=== PATIENT | male | born 1980 | race Hispanic/Latino ===

== ENCOUNTER 2022-07-05 18:11 | Emergency (ER) | payer OTHER ==
--- OUTSIDE RECORDS SUMMARY | 2022-07-05 18:20 | XMS REPORT | Continuity of Care Document ---
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 Problems Condition Condition Condition Status Onset Resolution Last Treating Co mments Source Name Details Category Date Date Treatment Clinician Date Seasonal Seasonal Disease Active Kelse y allergic allergic 06-13 Seybol d rhinitis rhinitis 00:00: - due to due to 00 Externa pollen pollen l Chronic Chronic Disease Active Autumn cough cough 06-13 Seybold 00:00: - 00 Externa l Acute Acute Disease Active Autumn non-recurr non-recurr 06-13 Se mercy ent ent 00:00: - maxillary maxillary 00 Exte rna sinusitis sinusitis l Non-recurr Non-recurr Disease Active Lucia elsey ent acute ent acute 06-13 Seyb old suppurativ suppurativ 00:00: - e otitis e otitis 00 Application Lead a media of media of l left ear left ear without without spontaneou spontaneou s rupture s rupture of of tympanic tympanic membrane membrane Allergies, Adverse Reactions, Alerts This patient has no known allergies or adverse reactions. Social History Social Habit Start Date Stop Date Quantity Comments Source Gender identity Autumn madrid - External Sexual orientation Autumn Beltre - External History of Social 2022-06-13 2022-06-13 Autumn Beltre - function 00:00:00 00:00:00 External Sex [birth year] At [birth year] Chris Beltre - 00:00:00 00:00:00 External Smoking Status Start Date Stop Date Source Never smoked tobacco Autumn Nciho guprreet - External Medications Ordered Filled Start Stop Current Ordering Indication Dosage Frequency Signature Comments Components Source Medication Medication Date Date Medication? Clinician (SIG) Name Name FLUTICASONE Yes 50ug Use 1 Kelse y PROPIONATE, 4-07 spray (50 Sey bold NASAL, 50 11:02: mcg total) - MCG/ACT 55 in each Externa nasal nostril l Suspension daily Ezetimibe 2022- No 10mg Take 1 Kelse y 10 MG oral -09 09-07 tablet (10 Se ybold Tablet 10:50: 00:00 mg total) - 41 :00 by mouth Externa daily l Simvastatin 2022- No 20mg Take 1 Chris sey 20 MG oral -09 09-07 tablet (20 Se ybold Tablet 10:50: 00:00 mg total) - 38 :00 by mouth Externa every day l at bedtime Loratadine Yes 10mg Take 1 Kelse y (Claritin) 4-07 capsule Seybol d 10 MG oral 10:41: (10 mg - Capsule 41 total) by Externa mouth l daily Loratadine 0 Yes 10mg Take 1 Kelse y (Claritin) 4-07 capsule Seybol d 10 MG oral 10:41: (10 mg - Capsule 41 total) by Externa mouth l daily Amoxicillin Yes [id number] 1{tbl} Take 1 Autumn -Pot 4-07 tablet by Seybold Clavulanate 00:00: mouth 2 - 875-125 MG 00 times Externa oral Tablet daily l predniSONE 0 Yes [id number] 10mg Take 1 K elsey (DELTASONE) 4-07 tablet (10 Se ybold 10 MG oral 00:00: mg total) - tablet 00 by mouth Externa daily l Amoxicillin 2022-0 2023- No [id number] 1{tbl} Take 1 Autumn -Pot 4-07 04-29 tablet by Seybold Clavulanate 00:00: 00:00 mouth 2 - 875-125 MG 00 :00 times Externa oral Tablet daily l predniSONE 2022- No [id number] 10mg Take 1 Autumn (DELTASONE) 06-13 tablet (10 S eybold 10 MG oral 00:00: 00:00 mg total) - tablet 00 :00 by mouth Externa daily l Vital Signs Vital Name Observation Time Observation Value Comments Source Systolic blood 2022-06-13 15:34:00 108 mm[Hg] Autumn Seybold - pressure External Diastolic blood 2022-06-13 15:34:00 80 mm[Hg] Supa y Seybold - pressure External Heart rate 2022-06-13 15:34:00 100 /min Autumn fieldbold - External Body temperature 2022-06-13 15:34:00 35.67 Malka Gabriella field Seybold - External Respiratory rate 2022-06-13 15:34:00 15 /min Gabriella field Seybold - External Body height 2022-06-13 15:34:00 170.2 cm Autumn fieldbold - External Body weight 2022-06-13 15:34:00 82.555 kg Autumn fieldbold - External BMI 2022-06-13 15:34:00 28.51 kg/m2 Autumn fieldbold - External Procedures This patient has no known procedures. Encounters Start End Encounter Admission Attending Care Care Encounter Source Date/Time Date/Time Type Type Clinicians Facility Department ID 2022-07-28 2022-07-28 Outpatient AUTUMN MASON [id number] Autumn 10:30:00 10:30:00 GULSHANMELISSA Cortez ybold A 2022-07-05 2022-07-05 Outpatient AUTUMN LÓPEZ [id number] Autumn 13:30:00 13:30:00 SANDRA Seybol d 2022-07-05 2022-07-05 Outpatient AUTUMN LÓPEZ [id number] Autumn 00:00:00 00:00:00 SANDRA Seybol d 2022-07-04 2022-07-04 Outpatient AUTUMN CAMPO [id number] Autumn 11:30:00 11:30:00 YUNI Seybol d 2022-06-23 2022-06-23 Outpatient AUTUMN CAMPO [id number] Autumn 00:00:00 00:00:00 YUNI Seybol d 2022-06-23 2022-06-23 Outpatient AUTUMN CAMPO [id number] Autumn 00:00:00 00:00:00 YUNI Seybol d 2022-06-16 2022-06-16 Outpatient AUTUMN CAMPO [id number] Autumn 00:00:00 00:00:00 YUNI Seybol d 2022-06-14 2022-06-14 Outpatient AUTUMN LEYVA [id number] Autumn 09:35:00 09:35:00 Seybol d 2022-06-13 2022-06-13 Outpatient AUTUMN CAMPO [id number] Autumn 10:45:00 10:45:00 YUNI Seybol d Results This patient has no known results.
[2022-07-05] MEDS ORDERED: IBUPROFEN 200 MG TAB PO ONE (18:56)
[2022-07-05] MEDS ORDERED: BUPIVACAINE 0.5% PF 10 ML VIAL ONE (18:56)
[2022-07-05] MEDS ORDERED: LIDOCAINE 1% 20 ML MDV ONE (18:56)
--- NOTE | 2022-07-05 20:37 | RAD REPORT ---
EXAM DESCRIPTION: NIESHA RAMIREZ - 07/05/2022 8:11 pm CLINICAL HISTORY: SMASH INJURY COMPARISON: No comparisons TECHNIQUE: Left hand, 3 views. FINDINGS: No fracture is identified. There is no dislocation or periosteal reaction noted. Joint alignment is maintained. No foreign body. Soft tissue swelling and overlying dressing along the second digit. IMPRESSION: No acute osseus abnormality. Soft tissue swelling as above.
--- NOTE | 2022-07-05 21:37 | ER ---
Nurse's Notes [facility] Name: Gumaro Espana Age: 42 yrs Sex: Male : 1980 Arrival Date: 07/05/2022 Time: 18:11 Bed 17 Private MD: Diagnosis: Laceration without foreign body of left index finger without damage to nail Presentation: 07/05 18:16 Chief complaint: Left index finger laceration from metal piece on new AC unit. Bleeding hb controlled. Coronavirus screen: At this time, the client does not indicate any symptoms associated with coronavirus-19. Ebola Screen: No symptoms or risks identified at this time. Initial Sepsis Screen: Does the patient meet any 2 criteria? No. Patient's initial sepsis screen is negative. Does the patient have a suspected source of infection? No. Patient's initial sepsis screen is negative. Risk Assessment: Do you want to hurt yourself or someone else? Patient reports no desire to harm self or others. Onset of symptoms was July 05, 2022. 18:16 Method Of Arrival: Ambulatory hb 18:16 Acuity: ALIYAH 4 hb Historical: - Allergies: 18:17 hydrocodone; hb - Immunization history:: Adult Immunizations up to date. - Social history:: Smoking status: Patient denies any tobacco usage or history of. Screenin:45 [facility] ED Fall Risk Assessment (Adult) History of falling in the last 3 months, kc6 including since admission No falls in past 3 months (0 pts) Confusion or Disorientation No (0 pts) Intoxicated or Sedated No (0 pts) Impaired Gait No (0 pts) Mobility Assist Device Used No (0 pt) Altered Elimination No (0 pt) Score/Fall Risk Level 0 - 2 = Low Risk Oriented to surroundings, Maintained a safe environment, Educated pt \T\ family on fall prevention, incl call for assistance when getting out of bed, Assessed \T\ reinforced patient's understanding of fall precautions, Hourly rounding (assess needs \T\ fall precautionary measures) done. Abuse screen: Denies threats or abuse. Denies injuries from another. Nutritional screening: No deficits noted. Tuberculosis screening: No symptoms or risk factors identified. Assessment: 18:43 General: Appears in no apparent distress. comfortable, Behavior is calm, cooperative, kc6 appropriate for age. Pain: Complains of pain in left index finger. Neuro: Partida Agitation-Sedation Scale (RASS): 0 - Alert and Calm Level of Consciousness is awake, alert, obeys commands, Oriented to person, place, time, situation, Appropriate for age. Cardiovascular: Capillary refill < 3 seconds. Respiratory: Airway is patent Trachea midline Respiratory effort is even, unlabored, Respiratory pattern is regular, symmetrical. GI: No signs and/or symptoms were reported involving the gastrointestinal system. : No signs and/or symptoms were reported regarding the genitourinary system. EENT: No signs and/or symptoms were reported regarding the EENT system. Derm: Wound noted left index finger Wound is open and swollen appears to be a laceration to the left index finger. Musculoskeletal: No signs and/or symptoms reported regarding the musculoskeletal system. Circulation, motion, and sensation intact. Capillary refill < 3 seconds, Range of motion: limited in left index finger. 19:37 Reassessment: Patient appears in no apparent distress at this time. Patient and/or as6 family updated on plan of care and expected duration. Pain level reassessed. Patient is alert, oriented x 3, equal unlabored respirations, skin warm/dry/pink. Vital Signs: 18:16 BP 115 / 77; Pulse 87; Resp 16; Temp 98.1; Pulse Ox 100% on R/A; Weight 83.91 kg; hb Height 5 ft. 7 in. ; Pain 4/10; 19:36 BP 120 / 90; Pulse 75; Resp 16 S; Pulse Ox 100% on R/A; as6 21:45 BP 114 / 85; Pulse 66; Resp 18 S; Pulse Ox 99% on R/A; as6 18:16 Body Mass Index 28.97 (83.91 kg, 170.18 cm) hb 18:16 Pain Scale: Adult hb ED Course: 18:13 Patient arrived in ED. ts1 18:17 Triage completed. hb 18:17 Arm band placed on. hb 18:23 Nicho Thomas PA is PHCP. cp 18:23 Sergio Lobo DO is Attending Physician. cp 18:32 Francia Cao, DIO is Primary Nurse. kc6 18:46 Patient has correct armband on for positive identification. Bed in low position. Call kc6 light in reach. Side rails up X 1. Adult w/ patient. 19:35 Primary Nurse role handed off by Francia Cao RN as6 19:35 Ad Chappell, DIO is Primary Nurse. as6 20:13 XRAY Hand LEFT 3 View In Process Unspecified. EDMS 21:45 Assist provider with laceration repair on palmar aspect of proxima; phalanx of right as6 index finger that was between 2.6 to 7.5 cm using sutures. Set up tray. Performed by Nicho CHAN Dressed with 4X4s, Kerlix, Patient tolerated well. Patient did not have IV access during this emergency room visit. Administered Medications: 18:54 Drug: Ibuprofen PO 800 mg Route: PO; kc6 21:37 Follow up: Response: No adverse reaction as6 18:54 Drug: Lidocaine Infiltration (1 %) 5 ml {Note: to bedside.} Volume: 20 ml; Route: kc6 Infiltration; 21:37 Follow up: Response: No adverse reaction as6 18:54 Drug: Bupivacaine Infiltration (0.5 %) 5 ml {Note: to bedside.} Volume: 10 ml; Route: kc6 Infiltration; 21:37 Follow up: Response: No adverse reaction as6 18:55 CANCELLED (pt allergyy): Hydrocodone-Acetaminophen PO (7.5 mg-325 mg) 1 tabs PO once; kc6 RASS on ADMIN: Combtv4, Very Agttd3, Agttd2, Rstlss1, AlertClm0, Drwsy-1, Lt Sdtn-2, Mod Sdtn-3, Dp Sdtn-4, UnArsble-5 Medication: 21:46 VIS not applicable for this client. as6 Outcome: 21:37 Discharge ordered by . cp 21:46 Discharged to home ambulatory, with significant other. as6 21:46 Condition: stable 21:53 Discharge instructions given to patient, significant other, Instructed on discharge as6 instructions, follow up and referral plans. medication usage, wound care, Demonstrated understanding of instructions, follow-up care, medications, wound care, Prescriptions given X 2. 21:53 Patient left the ED. as6 Signatures: Dispatcher [employer] EDMS Nicho Thomas PA PA cp Baxter, Heather, RN RN Ad Chappell RN RN as6 Cao, Francia, RN RN kc6 [place], Kadie, PAS PAS ts1
--- NOTE | 2022-07-05 21:38 | EDPHYS ---
Physician Documentation [facility] Name: Gumaro Espana Age: 42 yrs Sex: Male : 1980 Arrival Date: 07/05/2022 Time: 18:11 Bed 17 Private MD: ED Physician Sergio Lobo HPI: 07/05 19:00 This 42 yrs old Male presents to ER via Ambulatory with complaints of Finger cp Injury. 19:00 The patient or guardian reports decreased range of motion, injury, a laceration, pain, cp swelling, tenderness. The complaints affect the palmar aspect of proximal phalanx of left index finger. 19:00 Context: resulted from a crush injury, AC unit. Onset: The symptoms/episode cp began/occurred just prior to arrival. Associated signs and symptoms: Pertinent positives: decreased sensation distally, Pertinent negatives: cyanosis distally, heavy bleeding. Historical: - Allergies: 18:17 hydrocodone; hb - Immunization history:: Adult Immunizations up to date. - Social history:: Smoking status: Patient denies any tobacco usage or history of. ROS: 19:05 Constitutional: Negative for body aches, chills, fever, poor PO intake. cp 19:05 Respiratory: Negative for cough, shortness of breath, wheezing. 19:05 Abdomen/GI: Negative for abdominal pain, nausea, vomiting, and diarrhea. 19:05 MS/extremity: Positive for decreased range of motion, laceration, paresthesias, swelling, tenderness, of the palmar aspect of proximal phalanx of left index finger. 19:05 All other systems are negative. Exam: 19:10 Constitutional: The patient appears in no acute distress, alert, awake, non-toxic, well cp developed, well nourished. 19:10 Head/Face: Normocephalic, atraumatic. cp 19:10 Chest/axilla: Inspection: normal. 19:10 Cardiovascular: Rate: normal, Pulses: Pulses are 2+ in left radial artery. 19:10 Respiratory: the patient does not display signs of respiratory distress, Respirations: normal, no use of accessory muscles, no retractions, labored breathing, is not present. 19:10 Abdomen/GI: Exam negative for discomfort, distension, guarding, Inspection: abdomen appears normal. 19:10 Musculoskeletal/extremity: Extremities: grossly normal except: noted in the palmar aspect of proximal phalanx of left index finger: decreased ROM, laceration, swelling, tenderness, ROM: limited active range of motion, in the left index finger, due to swelling, limited active range of motion due to pain, in the left index finger, Perfusion: the extremity is pink, with brisk capillary refill, the distal aspect left index finger decreased sensation, Tendon exam: specific tendon testing normal through active and passive range of motion Vital Signs: 18:16 BP 115 / 77; Pulse 87; Resp 16; Temp 98.1; Pulse Ox 100% on R/A; Weight 83.91 kg; hb Height 5 ft. 7 in. ; Pain 4/10; 19:36 BP 120 / 90; Pulse 75; Resp 16 S; Pulse Ox 100% on R/A; as6 21:45 BP 114 / 85; Pulse 66; Resp 18 S; Pulse Ox 99% on R/A; as6 18:16 Body Mass Index 28.97 (83.91 kg, 170.18 cm) hb 18:16 Pain Scale: Adult hb Laceration: 21:35 Wound Repair of 2.5cm ( 1.0in ) subcutaneous laceration to aragon side proximal phalanx cp left index finger. Linear shaped.. Distal neuro/vascular/tendon intact. Anesthesia: Digital block administered with 6 mls of Lido/Marcaine. Wound prep: Moderate cleansing by me, Wound irrigation by me. Skin closed with 5 3-0 Prolene using interrupted sutures and sterile technique. Dressed with Bacitracin, 4x4's. Patient tolerated well. MDM: 18:27 Patient medically screened. cp 20:38 Independent interpretation of the following test(s) in the Emergency Department X-Ray: cp My interpretation is images of left hand negative for fracture. 21:36 Data reviewed: vital signs, nurses notes, radiologic studies, plain films. cp 21:36 I considered the following discharge prescriptions or medication management in the emergency department Medications were administered in the Emergency Department. See MAR. Counseling: I had a detailed discussion with the patient and/or guardian regarding: the historical points, exam findings, and any diagnostic results supporting the discharge/admit diagnosis, radiology results, the need for outpatient follow up, a family practitioner, to return to the emergency department if symptoms worsen or persist or if there are any questions or concerns that arise at home. Response to treatment: the patient's symptoms have markedly improved after treatment, and as a result, I will discharge patient. 07/05 18:45 Order name: XRAY Hand LEFT 3 View; Complete Time: 20:38 cp 07/05 18:45 Order name: Dressing - Wound; Complete Time: 18:54 cp 07/05 18:45 Order name: Gloves, Sterile; Complete Time: 18:54 cp 07/05 18:45 Order name: Setup Suture Tray; Complete Time: 18:54 cp 07/05 21:35 Order name: Splint: finger; Complete Time: 21:45 cp 07/05 21:35 Order name: Wound dressing; Complete Time: 21:45 cp Administered Medications: 18:54 Drug: Ibuprofen PO 800 mg Route: PO; kc6 21:37 Follow up: Response: No adverse reaction as6 18:54 Drug: Lidocaine Infiltration (1 %) 5 ml {Note: to bedside.} Volume: 20 ml; Route: kc6 Infiltration; 21:37 Follow up: Response: No adverse reaction as6 18:54 Drug: Bupivacaine Infiltration (0.5 %) 5 ml {Note: to bedside.} Volume: 10 ml; Route: kc6 Infiltration; 21:37 Follow up: Response: No adverse reaction as6 18:55 CANCELLED (pt allergyy): Hydrocodone-Acetaminophen PO (7.5 mg-325 mg) 1 tabs PO once; kc6 RASS on ADMIN: Combtv4, Very Agttd3, Agttd2, Rstlss1, AlertClm0, Drwsy-1, Lt Sdtn-2, Mod Sdtn-3, Dp Sdtn-4, UnArsble-5 Disposition: 22:00 Chart complete. cp Disposition Summary: 07/05/22 21:37 Discharge Ordered Location: Home cp Problem: new cp Symptoms: have improved cp Condition: Stable cp Diagnosis - Laceration without foreign body of left index finger without damage to nail cp Followup: cp - With: Private Physician - When: 10 - 14 days - Reason: Staple/Suture removal Discharge Instructions: - Discharge Summary Sheet cp - Laceration Care, Adult cp Forms: - Medication Reconciliation Form cp - Thank You Letter cp - Antibiotic Education cp - Prescription Opioid Use cp Prescriptions: - Cephalexin 500 mg Oral Capsule - take 1 capsule by ORAL route every 8 hours for 7 days; 21 capsule; Refills: 0, cp Product Selection Permitted - Ibuprofen 800 mg Oral Tablet - take 1 tablet by ORAL route every 8 hours As needed take with food; 30 tablet; cp Refills: 0, Product Selection Permitted Addendum: 07/07/2022 21:47 Co-signature as Attending Physician, Sergio Lobo DO I was immediately available on-site m s3 in the Emergency Department for consultation in the care of the patient. . Signatures: Dispatcher [employer] EDMS Nicho Thomas PA PA cp Baxter, Heather, RN RN Sergio Lobo DO DO ms3 Francia Cao RN RN kc6 Ad Chappell RN as6 Corrections: (The following items were deleted from the chart) 07/05 18:55 18:45 Hydrocodone-Acetaminophen PO (7.5 mg-325 mg) 1 tabs PO once; RASS on ADMIN: kc6 Combtv4, Very Agttd3, Agttd2, Rstlss1, AlertClm0, Drwsy-1, Lt Sdtn-2, Mod Sdtn-3, Dp Sdtn-4, UnArsble-5 ordered. cp 07/06 13:22 13:20 MS/extremity: Positive for decreased range of motion, laceration, paresthesias, cp swelling, tenderness, of the palmar aspect of proximal phalanx of left index finger, cp 13:22 13:20 Constitutional: Negative for body aches, chills, fever, poor PO intake, cp cp 13:22 13:20 Respiratory: Negative for cough, shortness of breath, wheezing, cp cp 13:22 13:20 Abdomen/GI: Negative for abdominal pain, nausea, vomiting, and diarrhea, cp cp 13:22 13:20 All other systems are negative, cp cp
[2022-07-05 21:59] VITALS: TEMP 98.1
[2022-07-05 22:03] VITALS: BP 114/85; O2SAT 99
== END 2022-07-05 21:53 | disposition home or self-care (01) ==
LOC: ER 18:11
PROC: 0HQGXZZ Repair Left Hand Skin, External Approach (ICD-10-PCS; principal; 2022-07-05)
DX: S61.211A Laceration without foreign body of left index finger without damage to nail, initial encounter (principal); Z88.5 Allergy status to narcotic agent
CPT/HCPCS: 73130; 12001; J2001; 99284

== ENCOUNTER 2022-09-18 21:14 | Emergency (ER) | payer OTHER ==
--- OUTSIDE RECORDS SUMMARY | 2022-09-18 21:17 | XMS REPORT | Continuity of Care Document ---
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 Problems Condition Condition Condition Status Onset Resolution Last Treating Co mments Source Name Details Category Date Date Treatment Clinician Date Bilateral Bilateral Disease Active Chris sey hearing hearing 5-08 Seybold loss loss 00:00: - 00 Externa l Family Family Disease Active Jasmyn history of history of 5-08 Se ybold pulmonary pulmonary 00:00: - fibrosis fibrosis 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 Finger Finger Disease Active Jasmyn pain, left pain, left 5-08 Se ybold 00:00: - 00 Externa l Gastroesop Gastroesop Disease Active K elsey hageal hageal 5-08 Seybold reflux reflux 00:00: - disease disease 00 Externa without without l esophagiti esophagiti s s Seasonal Seasonal Disease Active Kelse y allergic allergic 4-07 Seybol d rhinitis rhinitis 00:00: - due to due to 00 Externa pollen pollen l Chronic Chronic Disease Active Jasmyn cough cough 4-07 Seybold 00:00: - 00 Externa l Acute Acute Disease Active Jasmyn non-recurr non-recurr 4-07 Se ybold ent ent 00:00: - maxillary maxillary 00 Exte rna sinusitis sinusitis l Non-recurr Non-recurr Disease Active Lucia gaviria ent acute ent acute 4-07 Seyb old suppurativ suppurativ 00:00: - e otitis e otitis 00 Loan Servicing Specialist a media of media of l left ear left ear without without spontaneou spontaneou s rupture s rupture of of tympanic tympanic membrane membrane Allergies, Adverse Reactions, Alerts This patient has no known allergies or adverse reactions. Social History Social Habit Start Date Stop Date Quantity Comments Source Gender identity Jasmyn madrid - External Sexual orientation Jasmyn Beltre - External History of Social 2022-06-13 2022-06-13 Jasmyn Beltre - function 00:00:00 00:00:00 External Sex [birth year] At [birth year] Chris Beltre - 00:00:00 00:00:00 External Smoking Status Start Date Stop Date Source Never smoked tobacco Jasmyn vázquez - External Medications Ordered Filled Start Stop Current Ordering Indication Dosage Frequency Signature Comments Components Source Medication Medication Date Date Medication? Clinician (SIG) Name Name FLUTICASONE 2022- No 50ug Use 1 Gabriella field PROPIONATE, 5-08 05-08 spray (50 Se ybold NASAL, 50 17:12: 00:00 mcg total) - MCG/ACT 47 :00 in each Externa nasal nostril l Suspension daily Omeprazole Yes 20mg Take 1 Kelse y Magnesium 5-08 tablet (20 Seyb old 20 MG oral 16:34: mg total) - Tablet 11 by mouth Externa Delayed daily l Response Loratadine Yes 10mg Take 1 Chrisse y (Claritin) 5-08 capsule Seybol d 10 MG oral 16:04: (10 mg - Capsule 03 total) by Externa mouth l daily Montelukast Yes [id number] 10mg Take 1 Jasmyn (Singulair) 5-08 tablet (10 Se ybold 10 MG oral 00:00: mg total) - Tablet 00 by mouth Externa tablet nightly l FLUTICASONE 0 Yes [id number] 50ug Use 1 Lucia gaviria PROPIONATE, 5-08 spray (50 Sey bold NASAL, 50 00:00: mcg total) - MCG/ACT 00 in each Externa nasal nostril l Suspension daily FLUTICASONE Yes 50ug Use 1 Kelse y PROPIONATE, 4-07 spray (50 Sey bold NASAL, 50 11:02: mcg total) - MCG/ACT 55 in each Externa nasal nostril l Suspension daily Ezetimibe 2022- No 10mg Take 1 Kelse y 10 MG oral 06-13-07 tablet (10 Se ybold Tablet 10:50: 00:00 mg total) - 41 :00 by mouth Externa daily l Simvastatin 2022- No 20mg Take 1 Chris sey 20 MG oral 06-13- tablet (20 Se ybold Tablet 10:50: 00:00 mg total) - 38 :00 by mouth Externa every day l at bedtime Loratadine Yes 10mg Take 1 Kelse y (Claritin) 4-07 capsule Seybol d 10 MG oral 10:41: (10 mg - Capsule 41 total) by Externa mouth l daily Loratadine Yes 10mg Take 1 Kelse y (Claritin) 4-07 capsule Seybol d 10 MG oral 10:41: (10 mg - Capsule 41 total) by Externa mouth l daily Amoxicillin Yes [id number] 1{tbl} Take 1 Jasmyn -Pot 4-07 tablet by Seybold Clavulanate 00:00: mouth 2 - 875-125 MG 00 times Externa oral Tablet daily l predniSONE Yes [id number] 10mg Take 1 K elsey (DELTASONE) 4-07 tablet (10 Se ybold 10 MG oral 00:00: mg total) - tablet 00 by mouth Externa daily l Amoxicillin 2022- No [id number] 1{tbl} Take 1 Jasmyn -Pot 4-07 04-29 tablet by Seybold Clavulanate 00:00: 00:00 mouth 2 - 875-125 MG 00 :00 times Externa oral Tablet daily l predniSONE 2022- No [id number] 10mg Take 1 Jasmyn (DELTASONE) 4-07 -29 tablet (10 S eybold 10 MG oral 00:00: 00:00 mg total) - tablet 00 :00 by mouth Externa daily l Vital Signs Vital Name Observation Time Observation Value Comments Source Systolic blood 2022-07-14 21:02:00 120 mm[Hg] Jasmyn Seybold - pressure External Diastolic blood 2022-07-14 21:02:00 71 mm[Hg] Chrisse y Seybold - pressure External Heart rate 2022-07-14 21:02:00 103 /min Jasmyn Doss eybold - External Body temperature 2022-07-14 21:02:00 37.39 Malka Gabriella ey Seybold - External Respiratory rate 2022-07-14 21:02:00 14 /min Gabriella ey Seybold - External Body height 2022-07-14 21:02:00 170.2 cm Jasmyn Doss eybold - External Body weight 2022-07-14 21:02:00 82.555 kg Jasmyn Doss eybold - External BMI 2022-07-14 21:02:00 28.51 kg/m2 Jasmyn Doss eybold - External Oxygen saturation in 2022-07-14 21:02:00 99 /min Jasmyn Beltre - Arterial blood by External Pulse oximetry Systolic blood 2022-06-13 15:34:00 108 mm[Hg] Jasmyn Seybold - pressure External Diastolic blood 2022-06-13 15:34:00 80 mm[Hg] Supa y Seybold - pressure External Heart rate 2022-06-13 15:34:00 100 /min Jasmyn Doss eybold - External Body temperature 2022-06-13 15:34:00 35.67 Malka Gabriella field Seybold - External Respiratory rate 2022-06-13 15:34:00 15 /min Gabriella field Seybold - External Body height 2022-06-13 15:34:00 170.2 cm Jasmyn Doss eybold - External Body weight 2022-06-13 15:34:00 82.555 kg Jasmyn Doss eybold - External BMI 2022-06-13 15:34:00 28.51 kg/m2 Jasmyn fieldbold - External Procedures This patient has no known procedures. Encounters Start End Encounter Admission Attending Care Care Encounter Source Date/Time Date/Time Type Type Clinicians Facility Department ID 2022-10-03 2022-10-03 Outpatient SHAW COATS [id number] Jasmyn 16:00:00 16:00:00 Seybol d 2022-09-12 2022-09-12 Outpatient JASMYN CAMPO [id number] Jasmyn 00:00:00 00:00:00 YUNI Seybol d 2022-07-31 2022-07-31 Outpatient LITO NORTON JASMYN LEYVA [id number] Jasmyn 14:00:00 14:00:00 Seybol d 2022-07-28 2022-07-28 Outpatient ISABELLAJASMYN [id number] Jasmyn 10:30:00 10:30:00 GULSHAN-MELISSA Se ybold A 2022-07-24 2022-07-24 Outpatient JASMYN LEYVA [id number] Jasmyn 16:00:00 16:00:00 Seybol d 2022-07-15 2022-07-15 Outpatient LAB90 JASMYN LEYVA [id number] Jasmyn 08:00:00 08:00:00 Seybol d 2022-07-14 2022-07-14 Outpatient LAB90 JASMYN LEYVA [id number] Jasmyn 17:10:00 17:10:00 Seybol d 2022-07-14 2022-07-14 Outpatient PREJASMYN MENON [id number] Jasmyn 15:45:00 15:45:00 YUNI Seybol d 2022-07-14 2022-07-14 Outpatient JASMYN CAMPO [id number] Jasmyn 00:00:00 00:00:00 YUNI Seybol d 2022-07-07 2022-07-07 Outpatient JASMYN CAMPO [id number] Jasmyn 00:00:00 00:00:00 YUNI Seybol d 2022-07-05 2022-07-05 Outpatient JASMYN LÓPEZ [id number] Jasmyn 13:30:00 13:30:00 SANDRA Seybol d 2022-07-05 2022-07-05 Outpatient JASMYN LÓPEZ [id number] Jasmyn 00:00:00 00:00:00 SANDRA Seybol d 2022-07-04 2022-07-04 Outpatient JASMYN CAMPO [id number] Jasmyn 11:30:00 11:30:00 YUNI Seybol d 2022-06-23 2022-06-23 Outpatient JASMYN CAMPO [id number] Jasmyn 00:00:00 00:00:00 YUNI Seybol d 2022-06-23 2022-06-23 Outpatient JASMYN CAMPO [id number] Jasmyn 00:00:00 00:00:00 YUNI Seybol d 2022-06-16 2022-06-16 Outpatient JASMYN CAMPO [id number] Jasmyn 00:00:00 00:00:00 YUNI Seybol d 2022-06-14 2022-06-14 Outpatient JASMYN LEYVA [id number] Jasmyn 09:35:00 09:35:00 Seybol d 2022-06-13 2022-06-13 Outpatient JASMYN CAMPO [id number] Jasmyn 10:45:00 10:45:00 YUNI Seybol d Results This patient has no known results.
[2022-09-18 23:59] LABS: Absolute Lymphocytes (CBC) 2.7 K/uL (0.7-4.9); Hematocrit 44.6 % (39.6-49.0); Lymphocytes % 25.9 % (15.3-44.8); MCV 86.6 fL (80-100); RBC Red Blood Cell Count 5.14 M/uL (4.33-5.43)
[2022-09-19] MEDS ORDERED: MORPHINE 4 MG/ML SYR ONE (00:10)
[2022-09-19] MEDS ORDERED: ONDANSETRON 4 MG/2 ML VIAL ONE (00:10)
[2022-09-19 00:17] LABS: Albumin 4.2 g/dL (3.4-5.0); Bilirubin Total 0.4 mg/dL (0.2-1.0); Potassium 3.7 mEq/L (3.5-5.1)
[2022-09-19 01:53] LABS: Specific Gravity > 1.030 (1.005-1.030); Urine Bilirubin NEGATIVE (Negative); Urine Blood Negative (Negative); Urine Clarity Clear (Clear); Urine Color Light-Yellow (Yellow); Urine Glucose NEGATIVE (Negative); Urine Protein NEGATIVE (Negative); Urine Urobilinogen Normal (Normal)
--- NOTE | 2022-09-19 02:59 | ER ---
Nurse's Notes [facility] Name: Gumaro Espana Age: 42 yrs Sex: Male : 1980 Arrival Date: 09/18/2022 Time: 21:14 Bed 13 [facility] MD: Diagnosis: Left lower quadrant pain Presentation: 09/18 22:17 Chief complaint: Patient states: left sided abdominal pain radiating to left testicle lg3 X2 days and worsening. Coronavirus screen: Client denies travel out of the [place] in the last 14 days. At this time, the client does not indicate any symptoms associated with coronavirus-19. Ebola Screen: No symptoms or risks identified at this time. Initial Sepsis Screen: Does the patient meet any 2 criteria? No. Patient's initial sepsis screen is negative. Does the patient have a suspected source of infection? No. Patient's initial sepsis screen is negative. Risk Assessment: Do you want to hurt yourself or someone else? Patient reports no desire to harm self or others. Onset of symptoms was September 16, 2022. 22:17 Method Of Arrival: Ambulatory lg3 22:17 Acuity: ALIYAH 3 lg3 Triage Assessment: 22:19 General: Appears in no apparent distress. uncomfortable, Behavior is calm, cooperative. lg3 Pain: Complains of pain in anterior aspect of right lateral abdomen, left upper quadrant and left lower quadrant Pain radiates to pelvis and left leg. EENT: No deficits noted. No signs and/or symptoms were reported regarding the EENT system. Neuro: No deficits noted. Partida Agitation-Sedation Scale (RASS): 0 - Alert and Calm Level of Consciousness is awake, alert, obeys commands, Oriented to person, place, time, situation. Cardiovascular: No deficits noted. Denies chest pain, shortness of breath. Respiratory: No deficits noted. Airway is patent Respiratory effort is even, unlabored, Respiratory pattern is regular, symmetrical. GI: Abdomen is round non-distended, Reports lower abdominal pain, upper abdominal pain, cramping, nausea. : Reports pain scrotum. Derm: No deficits noted. No signs and/or symptoms reported regarding the dermatologic system. Musculoskeletal: No deficits noted. No signs and/or symptoms reported regarding the musculoskeletal system. Circulation, motion, and sensation intact. Range of motion: intact in all extremities. Historical: - Allergies: 22:19 HYDROCODONE; lg3 - Home Meds: 22:19 None [Active]; lg3 - PMHx: 22:19 None; lg3 - PSHx: 22:19 None; lg3 - Immunization history:: Adult Immunizations up to date, Client reports receiving the 2nd dose of the Covid vaccine. - Social history:: Smoking status: Patient denies any tobacco usage or history of. Patient uses alcohol, occasionally. Screenin/14 00:30 [facility] ED Fall Risk Assessment (Adult) History of falling in the last 3 months, jb4 including since admission No falls in past 3 months (0 pts) Confusion or Disorientation No (0 pts) Score/Fall Risk Level 0 - 2 = Low Risk Oriented to surroundings, Maintained a safe environment. Abuse screen: Denies threats or abuse. Nutritional screening: No deficits noted. Tuberculosis screening: No symptoms or risk factors identified. Assessment: 00:00 General: Appears in no apparent distress. uncomfortable, Behavior is calm, cooperative, jb4 appropriate for age. Pain: Complains of pain in abdomen Pain radiates to groin Pain currently is 8 out of 10 on a pain scale. Neuro: Level of Consciousness is awake, alert, obeys commands, Oriented to person, place, time, situation. Cardiovascular: Patient's skin is warm and dry. Respiratory: Airway is patent Respiratory effort is even, unlabored, Respiratory pattern is regular, symmetrical. GI: No signs and/or symptoms were reported involving the gastrointestinal system. : No signs and/or symptoms were reported regarding the genitourinary system. EENT: No signs and/or symptoms were reported regarding the EENT system. Derm: Skin is intact, Skin is pink, warm \T\ dry. Musculoskeletal: Circulation, motion, and sensation intact. Range of motion: intact in all extremities. 01:50 Reassessment: Patient appears in no apparent distress at this time. Patient and/or jb4 family updated on plan of care and expected duration. Pain level reassessed. Patient is alert, oriented x 3, equal unlabored respirations, skin warm/dry/pink. 03:12 Reassessment: Patient appears in no apparent distress at this time. Patient and/or jb4 family updated on plan of care and expected duration. Pain level reassessed. Patient is alert, oriented x 3, equal unlabored respirations, skin warm/dry/pink. Vital Signs: 09/18 22:17 BP 123 / 77; Pulse 101; Resp 19 S; Temp 98.5(O); Pulse Ox 99% on R/A; Weight 81.65 kg lg3 (R); Height 5 ft. 7 in. (R); Pain 7/10; 09/19 00:30 BP 114 / 79; Pulse 74; Resp 16; Pulse Ox 100% on R/A; jb4 01:44 BP 117 / 79; Pulse 78; Resp 16; Pulse Ox 100% on R/A; jb4 03:12 BP 100 / 72; Pulse 75; Resp 16; Pulse Ox 99% on R/A; jb4 09/18 22:17 Body Mass Index 28.19 (81.65 kg, 170.18 cm) lg3 09/18 22:17 Pain Scale: Adult lg3 ED Course: 09/18 21:15 Patient arrived in ED. ag3 21:27 Sandee Rod[facility] sb4 21:27 Isaias De La Vega MD is Attending Physician. sb4 22:19 Triage completed. lg3 22:19 Arm band placed on right wrist. lg3 23:41 Radiology exam delayed due to lab results not completed at this time. (BUN/Creatinine) eh4 IV insertion attempt and/or patient not having appropriate IV at this time. 09/19 00:30 Patient has correct armband on for positive identification. Bed in low position. Call jb4 light in reach. Side rails up X 1. Client placed on continuous cardiac and pulse oximetry monitoring. NIBP monitoring applied. 00:50 Larry Alcaraz, RN is Primary Nurse. jb4 01:13 CT Abd/Pelvis - IV Contrast Only In Process Unspecified. EDMS 02:49 US Scrotum Testicles In Process Unspecified. EDMS 02:57 Larry Willard MD is Referral Physician. sb4 03:12 No provider procedures requiring assistance completed. IV discontinued, intact, jb4 bleeding controlled, No redness/swelling at site. Pressure dressing applied. Administered Medications: 00:06 Drug: morphine IVP or IV 4 mg Route: IVP; Infused Over: 4 mins; Site: left antecubital; jb4 00:07 Drug: Ondansetron IVP 4 mg Route: IVP; Site: left antecubital; jb4 Medication: 03:12 VIS not applicable for this client. jb4 Outcome: 02:58 Discharge ordered by . sb4 03:12 Discharged to home ambulatory, with family. jb4 03:12 Condition: stable 03:12 Discharge instructions given to patient, Instructed on discharge instructions, follow up and referral plans. medication usage, Demonstrated understanding of instructions, follow-up care, medications, Prescriptions given X 1. 03:13 Patient left the ED. jb4 Signatures: Dispatcher [employer] EDMS Larry Alcraaz, RN RN jb4 Tamica Lam 3 Anh Underwood, RN RN 3 Giacomo Squiresselect medical trihealth rehabilitation hospitaladilia 4 Sandee Rodríguez PA-C PAKristy schultz4
--- NOTE | 2022-09-19 02:59 | EDPHYS ---
Physician Documentation [facility] Name: Gumaro Espana Age: 42 yrs Sex: Male : 1980 Arrival Date: 09/18/2022 Time: 21:14 Bed 13 Private MD: ED Physician Isaias De La Vega HPI: 09/19 00:39 This 42 yrs old Male presents to ER via Ambulatory with complaints of sb4 Abdominal Pain. 00:39 The patient presents with abdominal pain in the left lower quadrant. Onset: The sb4 symptoms/episode began/occurred 3 day(s) ago. The symptoms radiate to groin. Associated signs and symptoms: Pertinent positives: testicular pain, Pertinent negatives: nausea, vomiting, and diarrhea, dysuria, hematuria. 42 year old male otherwise healthy presents with 3 days of LLQ abdominal pain. He states that today it started to radiate down to his left groin. Denies n/v/d. He is employed as a laborer electroplating. Denies any acute injury. Historical: - Allergies: 09/18 22:19 HYDROCODONE; lg3 - Home Meds: 22:19 None [Active]; lg3 - PMHx: 22:19 None; lg3 - PSHx: 22:19 None; lg3 - Immunization history:: Adult Immunizations up to date, Client reports receiving the 2nd dose of the Covid vaccine. - Social history:: Smoking status: Patient denies any tobacco usage or history of. Patient uses alcohol, occasionally. ROS: 09/19 00:39 Constitutional: Negative for fever, chills, and weight loss, Eyes: Negative for injury, sb4 pain, redness, and discharge, Cardiovascular: Negative for chest pain, palpitations, and edema, Respiratory: Negative for shortness of breath, cough, wheezing, and pleuritic chest pain, MS/Extremity: Negative for injury and deformity, Skin: Negative for injury, rash, and discoloration. Abdomen/GI: Positive for abdominal pain, Negative for nausea, vomiting, and diarrhea. : Positive for testicular pain Exam: 00:39 Constitutional: This is a well developed, well nourished patient who is awake, alert, sb4 and in no acute distress. Head/Face: Normocephalic, atraumatic. Eyes: Extra-ocular motions intact. Periorbital areas with no swelling, redness, or edema. Cardiovascular: Regular rate and rhythm with a normal S1 and S2. Respiratory: Lungs have equal breath sounds bilaterally, clear to auscultation and percussion. No rales, rhonchi or wheezes noted. No increased work of breathing, no retractions or nasal flaring. Abdomen/GI: Soft, non-tender, no distension. Skin: Warm, dry with normal turgor. Normal color with no rashes, no lesions, and no evidence of cellulitis. MS/ Extremity: Pulses equal, no cyanosis. Neurovascular intact. Full, normal range of motion. Vital Signs: 09/18 22:17 BP 123 / 77; Pulse 101; Resp 19 S; Temp 98.5(O); Pulse Ox 99% on R/A; Weight 81.65 kg lg3 (R); Height 5 ft. 7 in. (R); Pain 09/15; 09/19 00:30 BP 114 / 79; Pulse 74; Resp 16; Pulse Ox 100% on R/A; jb4 01:44 BP 117 / 79; Pulse 78; Resp 16; Pulse Ox 100% on R/A; jb4 03:12 BP 100 / 72; Pulse 75; Resp 16; Pulse Ox 99% on R/A; jb4 09/18 22:17 Body Mass Index 28.19 (81.65 kg, 170.18 cm) lg3 09/18 22:17 Pain Scale: Adult lg3 MDM: 09/18 21:37 Patient medically screened. sb4 09/19 00:41 Differential diagnosis: diverticulitis, non-specific abd pain, Prostatitis, Testicular sb4 Torsion, urinary tract infection, hernia. 02:54 Data reviewed: vital signs, nurses notes, lab test result(s), radiologic studies, I sb4 have discussed the patient's presentation/case with the attending Emergency Department Physician; and as a result, I will discharge patient. Counseling: I had a detailed discussion with the patient and/or guardian regarding: the historical points, exam findings, and any diagnostic results supporting the discharge/admit diagnosis, lab results, radiology results, the need for outpatient follow up, a general surgeon. 09/18 23:36 Order name: CBC with Diff; Complete Time: 00:04 sb4 09/18 23:36 Order name: CMP; Complete Time: 00:18 sb4 09/18 23:36 Order name: Lipase; Complete Time: 00:18 sb4 09/18 23:36 Order name: Urinalysis w/ reflexes; Complete Time: 01:55 sb4 09/18 23:36 Order name: CT Abd/Pelvis - IV Contrast Only sb4 09/19 02:14 Order name: US Scrotum Testicles sb4 09/18 23:36 Order name: IV Saline Lock; Complete Time: 23:57 sb4 09/18 23:36 Order name: Labs collected and sent; Complete Time: 23:57 sb4 Administered Medications: 00:06 Drug: morphine IVP or IV 4 mg Route: IVP; Infused Over: 4 mins; Site: left antecubital; jb4 00:07 Drug: Ondansetron IVP 4 mg Route: IVP; Site: left antecubital; jb4 Disposition: 03:18 Co-signature as Attending Physician, Isaias De La Vega MD I reviewed the patient's care rn provided by the Advanced Practice Provider and agree with the diagnosis and treatment plan. Disposition Summary: 09/19/22 02:58 Discharge Ordered Location: Home sb4 Problem: new sb4 Symptoms: have improved sb4 Condition: Stable sb4 Diagnosis - Left lower quadrant pain sb4 Followup: sb4 - With: Larry Willard MD - When: 1 week - Reason: Further diagnostic work-up, Recheck today's complaints, Re-evaluation by your physician Discharge Instructions: - Discharge Summary Sheet sb4 - Abdominal Pain, Adult sb4 - Pain Without a Known Cause sb4 Forms: - Medication Reconciliation Form sb4 - Thank You Letter sb4 - Antibiotic Education sb4 - Prescription Opioid Use sb4 - Patient Portal Instructions sb4 Prescriptions: - Tramadol 50 mg Oral Tablet - take 1 tablet by ORAL route every 8 hours as needed; 12 tablet; Refills: 0, sb4 Product Selection Permitted Signatures: Dispatcher [employer] EDIsaias Dash MD MD rn Bryson, James, RN RN jb4 Anh Underwood RN RN lg3 Sandee Rodríguez PA-C PA-C sb4
[2022-09-19 06:01] VITALS: TEMP 98.5
[2022-09-19 06:08] VITALS: BP 100/72; O2SAT 99
--- NOTE | 2022-09-19 16:15 | RAD REPORT ---
EXAM DESCRIPTION: US - Scrotum Testicles - 09/19/2022 2:48 am CLINICAL HISTORY: 42 years Male, ABD PAIN COMPARISON: None. TECHNIQUE: Real-time sonographic images of the scrotal contents obtained using a linear multi hertz transducer. Color and spectral Doppler imaging was also obtained. FINDINGS: Testicles: The right testicle measures 4.7 x 2.3 x 3.3 cm. The left testicle measures left testicle measures 4.4 x 2.4 x 3.4 cm. No solid intratesticular mass identified. Homogenous echogen icity of the testicles. 2 mm left spermatocele. Epididymis: No abnormalities of the epididymis. Hydrocele: No hydrocele. Blood flow: Normal arterial and venous blood flow identified bilaterally. Other: No additional findings. IMPRESSION: No acute abnormality identified in the testicles. Normal blood flow identified bilateral ly. Electronically signed by: Deshawn Holden 09/19/2022 3:21 AM CDT Due to temporary technical issues with the PACS/Fluency reporting system, reports are being signed by the in house radiologists without review as a courtesy to insure prompt reporting. The interpreting radiologist is fully responsible for the content of the report.
--- NOTE | 2022-09-19 19:17 | RAD REPORT ---
EXAM DESCRIPTION: CT - Abdomen Pelvis W Contrast - 09/19/2022 6:31 am CLINICAL HISTORY: The patient is 42 years old and is Male; ABD PAIN TECHNIQUE: Axial computed tomography images of the abdomen and pelvis with intravenous contrast. S agittal and coronal reformatted images were created and reviewed. This CT exam was performed using one or more of the following dose reduction techniques: automated exposure control, adjustment of t he mA and/or kV according to patient size, and/or use of iterative reconstruction technique. COMPARISON: No relevant prior studies available. FINDINGS: Lung bases: Unremarkable. No mass. No consolidation. ABDOMEN: Liver: Unremarkable. No mass. Gallbladder and bile ducts: Unremarkable. No calcified stones. No ductal dilation. Pancreas: Unremarkable. No mass. No ductal dilation. Spleen: Unremarkable. No splenomegaly. Adrenals: Unremarkable. No mass. Kidneys and ureters: Unremarkable. No solid mass. No hydronephrosis. Stomach and bowel: Scattered colonic diverticula. No obstruction. No mucosal thickening. PELVIS: Appendix: The appendix is normal. Bladder: Unremarkable. Reproductive: Somewhat cystic appearance to the seminal vesicles. ABDOMEN and PELVIS: Intraperitoneal space: Unremarkable. No free air. No significant fluid collection. Bones/joints: No acute fracture. No dislocation. Soft tissues: Unremarkable. Vasculature: Unremarkable. No abdominal aortic aneurysm. Lymph nodes: Unremarkable. No enlarged lymph nodes. IMPRESSION: No acute finding in the abdomen/pelvis. Electronically signed by: Jose Baldwin MD 09/19/2022 1:50 AM CDT Due to temporary technical issues with the PACS/Fluency reporting system, reports are being signed by the in house radiologists without review as a courtesy to insure prompt reporting. The interpreting radiologist is fully responsible for the content of the report.
== END 2022-09-19 03:13 | disposition home or self-care (01) ==
LOC: ER 21:14
DX: R10.32 Left lower quadrant pain (principal); Z88.5 Allergy status to narcotic agent
CPT/HCPCS: 85025; 36415; 81003; 83690; 80053; 74177; 76870; 96375; 96374; 99284; Q9967; J2405

== ENCOUNTER 2022-10-31 07:15 | Day surgery (SDC) | payer OTHER ==
[2022-10-30 15:12] LABS: Potassium 3.7 mEq/L (3.5-5.1)
[2022-10-31] MEDS ORDERED: Ringers Lactate 1,000 ML IV ONE (07:40)
[2022-10-31] MEDS ORDERED: LIDOCAINE 1% MPF 5 ML VIAL ONE (08:56)
[2022-10-31] MEDS ORDERED: propofoL 200 MG/20 ML VIAL IV ONE ×2 (08:56)
[2022-10-31 09:55] VITALS: TEMP 97.3
[2022-10-31 09:56] VITALS: O2SAT 100
[2022-10-31 10:10] VITALS: BP 100/56
--- NOTE | 2022-11-03 12:18 | EKG ---
Test Date: 2022-10-30 Test Time: 14:23:14 Pediatric Physical Therapy Assistant: ALONSO MEASUREMENT RESULTS: Intervals: Rate: 89 IL: 132 QRSD: 84 QT: 356 QTc: 433 Anderson: P: 62 IL: 132 QRS: 73 T: 66 INTERPRETIVE STATEMENTS: Normal sinus rhythm Normal ECG No previous ECG available for comparison Electronically Signed On 11-03-22 12:14:29 CDT by River Carter
== END 2022-10-31 10:11 | disposition home or self-care (01) ==
LOC: OR 07:15
PROVIDERS: ATTEND Surgery
PROC: 0DB98ZX Excision of Duodenum, Via Natural or Artificial Opening Endoscopic, Diagnostic (ICD-10-PCS; 2022-10-31)
PROC: 0DB78ZX Excision of Stomach, Pylorus, Via Natural or Artificial Opening Endoscopic, Diagnostic (ICD-10-PCS; 2022-10-31)
PROC: 0DB68ZX Excision of Stomach, Via Natural or Artificial Opening Endoscopic, Diagnostic (ICD-10-PCS; 2022-10-31)
PROC: 0DB48ZX Excision of Esophagogastric Junction, Via Natural or Artificial Opening Endoscopic, Diagnostic (ICD-10-PCS; 2022-10-31)
PROC: 0DBK8ZX Excision of Ascending Colon, Via Natural or Artificial Opening Endoscopic, Diagnostic (ICD-10-PCS; principal; 2022-10-31 08:30)
PROC: 0DBC8ZX Excision of Ileocecal Valve, Via Natural or Artificial Opening Endoscopic, Diagnostic (ICD-10-PCS; 2022-10-31 08:30)
DX: R10.32 Left lower quadrant pain (principal); R19.7 Diarrhea, unspecified; K21.9 Gastro-esophageal reflux disease without esophagitis; K64.8 Other hemorrhoids; K29.80 Duodenitis without bleeding; K29.50 Unspecified chronic gastritis without bleeding
CPT/HCPCS: 93005; 80048; 36415; 88312; 88305; 45380; 43239; J2704 ×2; J2001; J7120